=== PATIENT | female | born 1950 | race African-American/Black ===

== ENCOUNTER 2018-06-30 11:06 | Emergency (ER) | payer MEDICARE, OTHER ==
[~2018-06-30] VITALS: Ht 157.5 cm; Wt 55.8 kg
--- NOTE | 2018-06-30 13:19 | PHYS DOC ---
Past Medical History Past Medical History: A-Fib, CVA, Dementia, High Cholesterol, Hypertension, Hepatitis Additional Past Medical Histor: Lt sided hemaparesis Past Surgical History: No Surgical History Alcohol Use: Occasionally Drug Use: None Adult General Chief Complaint Chief Complaint: LOWER EXTREMITY SWELLING HPI HPI 67-year-old female who really has no complaints at all. She presented today because family noticed that her left calf looks swollen and they're concerned about blood clot. Patient has no chest pain or shortness of breath. She has no pain in that area. She denies any other symptoms at this time.[] Review of Systems Review of Systems Constitutional: Denies fever or chills [] Eyes: Denies change in visual acuity, redness, or eye pain [] HENT: Denies nasal congestion or sore throat [] Respiratory: Denies cough or shortness of breath [] Cardiovascular: No additional information not addressed in HPI [] GI: Denies abdominal pain, nausea, vomiting, bloody stools or diarrhea [] : Denies dysuria or hematuria [] Musculoskeletal: Denies back pain or joint pain [] Integument: Denies rash or skin lesions [] Neurologic: Denies headache, focal weakness or sensory changes [] Endocrine: Denies polyuria or polydipsia [] All other systems were reviewed and found to be within normal limits, except as documented in this note. Allergies Allergies Allergies Coded Allergies Type Severity Reaction Last Updated Verified No Known Drug Allergies 07/25/15 No Physical Exam Physical Exam Constitutional: Well developed, well nourished, no acute distress, non-toxic appearance. [] HENT: Normocephalic, atraumatic, bilateral external ears normal, oropharynx moist, no oral exudates, nose normal. [] Eyes: PERRLA, EOMI, conjunctiva normal, no discharge. [] Neck: Normal range of motion, no tenderness, supple, no stridor. [] Cardiovascular:Heart rate regular rhythm, no murmur [] Lungs & Thorax: Bilateral breath sounds clear to auscultation [] Abdomen: Bowel sounds normal, soft, no tenderness, no masses, no pulsatile masses. [] Skin: Warm, dry, no erythema, no rash. [] Back: No tenderness, no CVA tenderness. [] Extremities: Negative Homans sign bilaterally. I do not really appreciate much in the way of swelling on her left calf. [] Neurologic: Alert and oriented X 3, normal motor function, normal sensory function, no focal deficits noted. [] Psychologic: Affect normal, judgement normal, mood normal. [] Current Patient Data Vital Signs Vital Signs Date Time Temp Pulse Resp B/P (MAP) Pulse Ox O2 Delivery O2 Flow Rate FiO2 06/30/18 11:06 98.4 55 18 160/76 (104) 98 Room Air 98.4 EKG EKG [] Radiology/Procedures Radiology/Procedures [] Impressions: PROCEDURE: VENOUS LOWER EXTREMITY LEFT Left lower extremity venous doppler ultrasound Indication:Left calf swelling.

IMP: No DVT seen in visualized vessels Technique: Color Doppler, grayscale, and spectral waveform analysis is used to evaluate the left femoral and popliteal veins. Findings: Study is technically limited, as the patient was moving during the exam. The left common femoral and superficial femoral veins, and popliteal vein, are patent with normal compressibility and response to augmentation. Visualized calf veins are patent. Particular, the distal peroneal veins are poorly seen. Impression: No evidence of deep venous thrombosis. Limited calf vein visualization. Course & Med Decision Making Course & Med Decision Making Pertinent Labs and Imaging studies reviewed. (See chart for details) [] Dragon Disclaimer Dragon Disclaimer This electronic medical record was generated, in whole or in part, using a voice recognition dictation system. Departure Departure Impression: Primary Impression: Left leg swelling Disposition: 01 HOME, SELF-CARE Condition: STABLE Referrals: DAYAMI STONE MD (PCP) Patient Instructions: Peripheral Edema Additional Instructions: Follow with her primary care physician later this week for recheck. Return to the emergency department with any new or concerning symptoms MIKE JONES DO Jun 30, 2018 13:19
--- NOTE | 2018-06-30 13:23 | RAD ---
Left lower extremity venous doppler ultrasound Indication:Left calf swelling.

IMP: No DVT seen in visualized vessels Technique: Color Doppler, grayscale, and spectral waveform analysis is used to evaluate the left femoral and popliteal veins. Findings: Study is technically limited, as the patient was moving during the exam. The left common femoral and superficial femoral veins, and popliteal vein, are patent with normal compressibility and response to augmentation. Visualized calf veins are patent. Particular, the distal peroneal veins are poorly seen. Impression: No evidence of deep venous thrombosis. Limited calf vein visualization. Electronically signed by: Alo Thomas MD (06/30/2018 1:21 PM) [id number]
[2018-06-30 13:43] VITALS: BP 152/76
== END 2018-06-30 14:35 | disposition home or self-care (01) ==
LOC: ER 11:06
DX: M79.89 Other specified soft tissue disorders (principal); I48.91 Unspecified atrial fibrillation; E78.00 Pure hypercholesterolemia, unspecified; I10 Essential (primary) hypertension; Z86.73 Personal history of transient ischemic attack (TIA), and cerebral infarction without residual deficits
CPT/HCPCS: 93971; 99284-25